=== PATIENT | female | born 1975 | race Caucasian/White ===

== ENCOUNTER 2017-01-28 17:01 | Emergency (ER) | payer OTHER, BC ==
[2017-01-28 17:00] LABS: BASO % 0.6 % (0-2); EOS % 1.6 % (0-7); EOSINOPHIL ABSOLUTE COUNT 0.1 tho/cmm (0.0-0.7); HGB-HEMOGLOBIN 15.8 gm/dl (12.0-15.5); IMMATURE GRANULOCYTES ABSOLUTE 0.03 tho/cmm (0-0.03); IMMATURE GRANULOCYTES PERCENT 0.4 % (0-0.3); LYMPH % 26.9 % (20-45); LYMPH ABSOLUTE COUNT 1.8 tho/cmm (0.8-4.5); MCH (MEAN CORPUSCULAR HGB) 30.7 pg (28.0-32.0); MCHC MEAN CORPUSCULAR HGB CONC 35.1 % (32.0-36.0); MCV (MEAN CELL VOLUME) 87.4 fl (82.0-96.0); MEAN PLATELET VOLUME 9.8 cmc (9.4-12.4); MONOCYTE ABSOLUTE COUNT 0.5 tho/cmm (0.0-1.2); NEUTROPHIL ABSOLUTE COUNT 4.3 tho/cmm (1.6-8.0); NEUTROPHIL-AUTOMATED 4.3 tho/cmm (1.6-8.0); NEUTROPHILS % 63.5 % (40-80); PLATELET COUNT 243 tho/cmm (150-450); RED BLOOD COUNT 5.15 mil/cmm (4.00-5.20); RED CELL DISTRIBUTION WIDTH 12.8 % (12.4-16.4); WHITE BLOOD COUNT 6.7 tho/cmm (4.0-10.0)
[~2017-01-28 17:01] MED LIST: CALCIUM500 MG PO; COLACE100 MG PO; CYCLOBENZAPRINE10 M1 PO; CYMBALTA30 MG; CYMBALTA60 MG; CYPROHEPTADINE H4 MG PO; DARVOCET-N 1001 TAB; DARVOCET-N 1001 TAB PO; DEXAMETHASONE4 M1 PO; DIAMOX250 MG/TAB PO; DIAZEPAM5 M; DIVALPROEX SOD250 M3 PO; DIVALPROEX SOD500 M5 PO; DULERA 200 MCG/13 G1 INH; EFFEXOR XR150 MG; IBUPROFEN IB200 M1 PO; IBUPROFEN800 MG PO; IMITREX; IMITREX100 M2 PO; IMITREX50 M2 PO; IMITREX6 MG/0.51 SQ; KEPPRA250 MG; KEPPRA250 MG PO; KLONOPIN0.5 MG; LORTAB 5-500 T1 EAC1 PO; LYRICA50 MG; LYRICA75 MG; LYRICA75 MG/CAP PO; MACROBID 100 M100 M1 PO; MAGOX 400400 M1 PO; MECLIZINE HCL25 M3 PO; METAXALONE800 M1 PO; METOCLOPRAMIDE10 M2 PO; MILK OF MA400 MG/5 M PO; MIRALAX17 GM PO; MULTIVITAMIN1 CAP; MULTIVITAMIN1 TAB PO; NAPROSYN500 M1 PO; NEURONTIN100 MG PO; NORCO 5-325 TA1 EACH PO; NORCO 5/325 TAB1 TAB PO; PHENERGAN25 M1 PO; PHENERGAN25 M3 RC; PRISTIQ ER50 MG PO; PRISTIQ50 MG PO; PROAIR HFA8.5 GM INH; PROTONIX40 M2 PO; PROZAC20 MG PO; SKELAXIN800 MG PO; TOPAMAX25 M PO; TOPIRAMATE ER50 MG PO; TORADOL10 MG PO; TRAMADOL HCL50 M2 PO; TRANSDERM-1 PATCH .7 AP; TRILEPTAL150 MG; TRILEPTAL150 MG PO; TRILEPTAL300 MG; TRILEPTAL600 MG; TRILIPTAL; ULTRAM ER100 MG; ULTRAM50 MG PO; VALIUM5 MG PO; VALPROIC ACID250 M1 PO; VIIBRYD10 MG PO; VISTARIL25 MG; ZANAFLEX2 M; ZOFRAN ODT4 MG/UDTAB PO; ZOFRAN4 M1 PO; ZOFRAN4 M2 PO; ZONEGRAN25 MG PO
[2017-01-28 17:13] LABS: ALBUMIN 4.2 g/dl (3.5-5.0); ALKALINE PHOSPHATASE 65 U/L (33-138); ALT/SGPT 20 U/L (12-78); BILIRUBIN,TOTAL 0.5 mg/dl (0-1.5); BLOOD UREA NITROGEN 15 mg/dl (6-24); CARBON DIOXIDE-VENOUS 27 mmol/L (22-32); CHLORIDE 107 mmol/l (96-110); CREATININE 0.86 mg/dl (0.50-1.10); GLUCOSE 84 mg/dL (70-110); LIPASE 243 U/L (73-393); SODIUM 139 mmol/L (135-145); eGFR VALUE FOR BLACK >90 mL/Min
[2017-01-28 17:15] LABS: ANION GAP 9 mmol/L (0-20); AST/SGOT 17 U/L (10-40); POTASSIUM 3.8 mmol/L (3.7-5.1)
[2017-01-28 17:18] LABS: URINE BILIRUBIN NEGATIVE (NEG); URINE BLOOD NEGATIVE (NEG); URINE GLUCOSE (UA) NEGATIVE (NEG); URINE KETONE NEGATIVE (NEG); URINE LEUKOCYTE ESTERASE NEGATIVE (NEG); URINE NITRITE NEGATIVE (NEG); URINE PROTEIN NEGATIVE (NEG)
[2017-01-28 17:27] LABS: URINE APPEARANCE CLEAR; URINE COLOR YELLOW
[2017-01-28] MEDS ORDERED: PRILOSEC OTC20 M1 PO (19:27)
[2017-01-28] MEDS ORDERED: NORCO 5-325 TA1 EACH PO (19:27)
[2017-01-28] MEDS ORDERED: ZOFRAN4 M2 PO (19:27)
== END 2017-01-28 19:51 ==
LOC: EDMED 17:01
PROVIDERS: Physician Assistant
DX: R10.32 Left lower quadrant pain (principal); R10.13 Epigastric pain; Z90.49 Acquired absence of other specified parts of digestive tract; Z90.710 Acquired absence of both cervix and uterus
CPT/HCPCS: C9113; J0780; J1170; J2405; J7030; Q9967

== ENCOUNTER 2017-03-10 16:20 | Emergency (ER) | payer BC, OTHER ==
[~2017-03-10 16:20] MED LIST changes: +PRILOSEC OTC20 M1 PO
[2017-03-10] MEDS ORDERED: ULTRAM50 M1 PO (17:48)
== END 2017-03-10 18:09 ==
LOC: EDMED 16:20
DX: S40.011A Contusion of right shoulder, initial encounter (principal); W21.07XA Struck by softball, initial encounter; Y92.830 Public park as the place of occurrence of the external cause

== ENCOUNTER 2017-07-08 09:01 | Emergency (ER) | payer BC, OTHER ==
[~2017-07-08] VITALS: Ht 172.7 cm; Wt 72.6 kg
[~2017-07-08 09:01] MED LIST changes: +ULTRAM50 M1 PO
[2017-07-08 10:03] LABS: BASO % 0.7 % (0-2); EOS % 2.9 % (0-7); EOSINOPHIL ABSOLUTE COUNT 0.1 tho/cmm (0.0-0.7); HCT-HEMATOCRIT 41.6 % (34.0-49.0); HGB-HEMOGLOBIN 14.7 gm/dl (12.0-15.5); IMMATURE GRANULOCYTES ABSOLUTE 0.04 tho/cmm (0-0.03); IMMATURE GRANULOCYTES PERCENT 0.9 % (0-0.3); LYMPH % 23.6 % (20-45); LYMPH ABSOLUTE COUNT 1.1 tho/cmm (0.8-4.5); MCH (MEAN CORPUSCULAR HGB) 30.3 pg (28.0-32.0); MCHC MEAN CORPUSCULAR HGB CONC 35.3 % (32.0-36.0); MCV (MEAN CELL VOLUME) 85.8 fl (82.0-96.0); MEAN PLATELET VOLUME 9.9 cmc (9.4-12.4); MONO % 6.9 % (0-12); MONOCYTE ABSOLUTE COUNT 0.3 tho/cmm (0.0-1.2); NEUTROPHIL ABSOLUTE COUNT 2.9 tho/cmm (1.6-8.0); NEUTROPHIL-AUTOMATED 2.9 tho/cmm (1.6-8.0); PLATELET COUNT 202 tho/cmm (150-450); RED BLOOD COUNT 4.85 mil/cmm (4.00-5.20); WHITE BLOOD COUNT 4.5 tho/cmm (4.0-10.0)
[2017-07-08 10:16] LABS: ALBUMIN 3.7 g/dl (3.5-5.0); ALKALINE PHOSPHATASE 59 U/L (33-138); ALT/SGPT 18 U/L (12-78); ANION GAP 13 mmol/L (0-20); AST/SGOT 9 U/L (10-40); BILIRUBIN,TOTAL 0.7 mg/dl (0-1.5); BLOOD UREA NITROGEN 20 mg/dl (6-24); CALCIUM 8.7 mg/dl (8.5-10.5); CARBON DIOXIDE-VENOUS 25 mmol/L (22-32); CHLORIDE 106 mmol/l (96-110); CREATININE 0.89 mg/dl (0.50-1.10); GLUCOSE 85 mg/dL (70-110); LIPASE 195 U/L (73-393); POTASSIUM 3.8 mmol/L (3.7-5.1); SODIUM 140 mmol/L (135-145); eGFR VALUE FOR BLACK >90 mL/Min
[2017-07-08 10:31] LABS: URINE APPEARANCE CLEAR; URINE BILIRUBIN NEGATIVE (NEG); URINE BLOOD NEGATIVE (NEG); URINE COLOR YELLOW; URINE GLUCOSE (UA) NEGATIVE (NEG); URINE KETONE NEGATIVE (NEG); URINE LEUKOCYTE ESTERASE NEGATIVE (NEG); URINE NITRITE NEGATIVE (NEG); URINE PH 6.5 (5.0-8.0); URINE PROTEIN NEGATIVE (NEG)
[2017-07-08 10:35] LABS: C-REACTIVE PROTEIN <0.3 mg/dl (0-0.9)
[2017-07-08] MEDS ORDERED: PYRIDIUM100 M2 PO (10:58)
[2017-07-08] MEDS ORDERED: MULTIVITAMINS1 EAC7 PO (11:02)
[2017-07-08] MEDS ORDERED: CVS CALCIUM 601 EAC2 PO (11:02)
[2017-07-08] MEDS ORDERED: NORCO 5-325 TA1 EACH PO (12:55)
[2017-07-08] MEDS ORDERED: ZOFRAN4 M2 PO (12:55)
== END 2017-07-08 13:30 ==
LOC: EDMED 09:01
PROVIDERS: Emergency Medicine
DX: R10.32 Left lower quadrant pain (principal); N83.202 Unspecified ovarian cyst, left side; R10.2 Pelvic and perineal pain; Z90.710 Acquired absence of both cervix and uterus; Z98.890 Other specified postprocedural states; Z88.8 Allergy status to other drugs, medicaments and biological substances
CPT/HCPCS: J1885; J2270; J2405; J7030